=== PATIENT | male | born 1960 | race Caucasian/White ===

== ENCOUNTER 2024-05-30 15:05 | Emergency (ER) | payer OTHER ==
[~2024-05-30] VITALS: Ht 165.1 cm; Wt 63.5 kg
[2024-05-30] MEDS ORDERED: TOPROL XL25 M1 PO (15:20)
[2024-05-30] MEDS ORDERED: HUMULIN 70100 UNIT/2 SUBCUTANEO (15:20)
[2024-05-30] MEDS ORDERED: ONDANSETRON HCL 2 MG/ML VIAL IV ONE (16:45)
[2024-05-30] MEDS ORDERED: HYOSCYAMINE SULFATE 0.125 MG TAB.SUBL SL ONE (16:45)
[2024-05-30] MEDS ORDERED: 0.9 % SODIUM CHLORIDE 500 ML IV ONE (16:45)
[2024-05-30 17:29] LABS: HEMATOCRIT 43.6 % (39.0-48.0); HEMOGLOBIN 14.9 g/dL (13-16.00); MEAN CELL VOLUME 87.3 fL (80.0-100.00); MEAN CORPUSCULAR HEMOGLOBIN 29.8 pg (27.00-32.0); MEAN CORPUSCULAR HGB CONC 34.2 g/dl (32.0-36.0)
[2024-05-30 17:33] LABS: PLATELET COUNT 120 K/uL (150-450)
[2024-05-30 17:44] LABS: ALBUMIN 3.4 gm/dL (3.4-5.0); BILIRUBIN TOTAL 0.83 mg/dL (0.3-1.2); CALCIUM 8.9 mg/dL (8.5-10.1); CREATININE SERUM 1.1 mg/dL (0.70-1.30); GFR 66.97; POTASSIUM 3.9 mEq/L (3.5-5.1); TOTAL PROTEIN 6.4 gm/dL (6.4-8.2)
== END 2024-05-30 20:43 | disposition home or self-care (01) ==
LOC: ER 15:05
PROVIDERS: General Practice
DX: R53.81 Other malaise (principal); K52.9 Noninfective gastroenteritis and colitis, unspecified; Z20.822 Contact with and (suspected) exposure to COVID-19; E11.9 Type 2 diabetes mellitus without complications; Z79.4 Long term (current) use of insulin
CPT/HCPCS: 36415; 96365; 96366; 99282; J2405; J7042